=== PATIENT | female | born 1995 | race Caucasian/White ===

== ENCOUNTER → 2017-11-29 | Outpatient (CLI) | payer BC ==
[2017-11-29 17:31] LABS: Basophils # (A) 0.1 k/uL (0-0.2); Basophils % (A) 1 %; Eosinophils # (A) 0.2 k/uL (0-0.7); Eosinophils % (A) 3 %; HCT 44.6 % (34.0-46.0); HGB 14.1 gm/dL (11.4-16.0); Lymphocytes % (A) 37 %; MCHC 31.7 g/dL (31.0-37.0); MCV 85.1 fL (80.0-100.0); Monocytes # (A) 0.5 k/uL (0-1.0); Monocytes % (A) 7 %; Neutrophils # (A) 3.9 k/uL (1.3-7.7); Neutrophils % (A) 49 %; Platelet Count 415 k/uL (150-450); RBC 5.24 m/uL (3.80-5.40); RDW 15.4 % (11.5-15.5)
[2017-11-29 17:57] LABS: ALT 32 U/L (9-52); AST 30 U/L (14-36); Albumin 4.6 g/dL (3.5-5.0); Alkaline Phosphatase 63 U/L (38-126); Anion Gap 13 mmol/L; Blood Urea Nitrogen 12 mg/dL (7-17); Calcium 9.9 mg/dL (8.4-10.2); Carbon Dioxide 25 mmol/L (22-30); Chloride 100 mmol/L (98-107); Glucose 93 mg/dL (74-99); Potassium 4.2 mmol/L (3.5-5.1); Sodium 138 mmol/L (137-145); Total Bilirubin 0.3 mg/dL (0.2-1.3); Total Protein 7.8 g/dL (6.3-8.2)
[2017-11-29 18:03] LABS: T4, Free (Free Thyroxine) 1.01 ng/dL (0.78-2.19)
[2017-11-30 00:36] LABS: Iron Saturation 5.12 (12.00-45.00)
== END | disposition home or self-care (01) ==
LOC: LABWHC1 16:57
PROVIDERS: ATTEND Family Medicine
DX: G43.909 Migraine, unspecified, not intractable, without status migrainosus (principal); L65.0 Telogen effluvium; R41.840 Attention and concentration deficit
CPT/HCPCS: 36415; 80053; 82607; 82626; 83540; 83550; 84403; 84439; 84443; 85025

== ENCOUNTER → 2018-09-07 | Outpatient (CLI) | payer BC ==
[2018-09-07 17:29] LABS: Basophils # (A) 0.1 k/uL (0-0.2); Basophils % (A) 1 %; Eosinophils # (A) 0.2 k/uL (0-0.7); Eosinophils % (A) 3 %; HCT 44.4 % (34.0-46.0); HGB 14.7 gm/dL (11.4-16.0); Lymphocytes # (A) 2.7 k/uL (1.0-4.8); Lymphocytes % (A) 38 %; MCH 30.2 pg (25.0-35.0); MCV 91.6 fL (80.0-100.0); Mean Platelet Volume 7.9; Monocytes # (A) 0.6 k/uL (0-1.0); Monocytes % (A) 8 %; Neutrophils # (A) 3.3 k/uL (1.3-7.7); Neutrophils % (A) 46 %; Platelet Count 375 k/uL (150-450); RBC 4.85 m/uL (3.80-5.40); WBC 7.1 k/uL (3.8-10.6)
[2018-09-07 23:08] LABS: Gliadin AB IgA, Unit <0.2 U/mL
[2018-09-07 23:54] LABS: Codfish IgE <0.10 kU/L; Egg White IgE <0.10 kU/L
[2018-09-07 23:58] LABS: Iron Saturation 16.56 (12.00-45.00); Protein, Total 7.2 g/dL (6.2-8.2)
[2018-09-08 00:05] LABS: Scallop IgE <0.10 kU/L
[2018-09-08 00:06] LABS: Clam IgE <0.10 kU/L; Peanut IgE <0.10 kU/L; Shrimp IgE <0.10 kU/L; Soybean IgE <0.10 kU/L; Walnut IgE (Food) <0.10 kU/L
[2018-09-08 00:33] LABS: ALT 20 U/L (8-44); AST 29 U/L (13-35); Albumin/Globulin Ratio 1.78 (1.60-3.17); Alkaline Phosphatase 67 U/L (41-126); Amylase 128 U/L (23-121); C Reactive Protein <0.4 mg/dL (0.0-0.8); Carbon Dioxide 23.1 mmol/L (21.6-31.8); Chloride 104 mmol/L (96-109); Globulin 2.7 g/dL (1.6-3.3); Glucose 91 mg/dL (70-110); Lipase 50 U/L (14-63); Potassium 3.9 mmol/L (3.5-5.5); Sodium 138 mmol/L (135-145); Total Bilirubin 0.5 mg/dL (0.3-1.2); Total Protein 7.5 g/dL (6.2-8.2)
[2018-09-08 11:07] LABS: Albumin 4.17 g/dL (3.80-4.90); Gamma Globulin 1.16 g/dL (0.70-1.50)
== END | disposition home or self-care (01) ==
LOC: LABWHC1 16:58
PROVIDERS: ATTEND Family Medicine
DX: K58.0 Irritable bowel syndrome with diarrhea (principal); R10.84 Generalized abdominal pain
CPT/HCPCS: 36415; 80053; 82150; 82607; 82785; 83516; 83540; 83550; 83690; 84165; 84439; 84443; 85025; 86003; 86140

== ENCOUNTER → 2022-01-29 | Outpatient (CLI) | payer BC ==
--- NOTE | 2022-01-29 08:12 | US ---
EXAMINATION TYPE: US thyroid st tissue head/neck DATE OF EXAM: 01/29/2022 COMPARISON: Thyroid ultrasound 2013 CLINICAL HISTORY: E07.9 DISORDER OF THYROID. GLAND SIZE: Right Lobe: 5.4. x 1.3 x 1.2 cm Overall Parenchyma: heterogenous Left Lobe: 5.1 x 1.7 x 1.6 cm Overall Parenchyma: heterogeneous Isthmus Thickness: 0.2 cm NODULES RIGHT: # of nodules measured on right: 0 LEFT: # of nodules measured on left: 0 ISTHMUS: # of nodules measured in the isthmus: 0 Bilateral neck scanned, no evidence of lymphadenopathy. Slightly heterogeneous normal-sized thyroid without significant greater than 5 mm solid nodule. IMPRESSION: As above. No significant change from prior
== END | disposition home or self-care (01) ==
LOC: RADUSWWP 07:22
PROVIDERS: ATTEND Family Medicine
DX: E07.9 Disorder of thyroid, unspecified (principal)
CPT/HCPCS: 76536

== ENCOUNTER → 2022-02-19 | Outpatient (CLI) | payer BC ==
[2022-02-19 18:52] LABS: Basophils % (A) 1.5 %; Eosinophils # (A) 0.13 X 10*3/uL (0.04-0.35); Eosinophils % (A) 1.9 %; HCT 47.1 % (37.2-46.3); HGB 15.2 g/dL (12.0-15.0); Immature Grans, Automated 0.1 %; Lymphocytes # (A) 2.28 X 10*3/uL (0.90-5.00); Lymphocytes % (A) 33.4 %; MCHC 32.3 g/dL (32.0-37.0); MCV 89.7 fL (80.0-97.0); Mean Platelet Volume 11.4 fL (9.5-12.2); Monocytes # (A) 0.68 X 10*3/uL (0.20-1.00); NRBC Per 100 WBC 0 /100 WBCS (0.0-0.0); Neutrophils # (A) 3.62 X 10*3/uL (1.80-7.70); Neutrophils % (A) 53.1 %; Platelet Count 372 X 10*3/uL (140-440); RBC 5.25 X 10*6/uL (4.10-5.20); RDW 12.6 % (11.5-14.5); WBC 6.82 X 10*3/uL (4.50-10.00)
[2022-02-19 19:32] LABS: % Iron Saturation 37.58 (12.00-45.00); ALT 20 U/L (8-44); AST 24 U/L (13-35); African American GFR (CKD) 126.2 (60.0-200.0); Albumin 4.9 g/dL (3.8-4.9); Albumin/Globulin Ratio 1.58 (1.60-3.17); Alkaline Phosphatase 98 U/L (41-126); BUN/Creat Ratio 14.45 Ratio (12.00-20.00); Calcium 12.5 mg/dL (8.7-10.3); Carbon Dioxide 23.1 mmol/L (20.0-27.5); Chloride 101 mmol/L (96-109); Chol/HDL Ratio 3.58 Ratio; Globulin 3.1 g/dL (1.6-3.3); Glucose 85 mg/dL (70-110); Iron 201 ug/dL (50-170); LDL Cholesterol,Calculated 135.8 mg/dL (0.0-131.0); Non-African American GFR(CKD) 108.9 (60.0-200.0); Potassium 4.2 mmol/L (3.5-5.5); Sodium 136 mmol/L (135-145); Total Iron Binding Capacity 535 ug/dL (228-460)
[2022-02-20 04:46] LABS: EBV - EA (IgG) <5.0 U/mL (<9.0); EBV - EBNA (IgG) 5.6 U/mL (<18.0); EBV - VCA (IgG) 40.2 U/mL (<18.0); EBV - VCA IgM <10.0 U/mL (<36.0)
== END | disposition home or self-care (01) ==
LOC: LABWHC1 10:52
PROVIDERS: ATTEND Dermatology
DX: Z00.00 Encounter for general adult medical examination without abnormal findings (principal); E61.1 Iron deficiency; E07.9 Disorder of thyroid, unspecified; E53.9 Vitamin B deficiency, unspecified; L65.0 Telogen effluvium; R53.82 Chronic fatigue, unspecified; E55.9 Vitamin D deficiency, unspecified; D22.5 Melanocytic nevi of trunk
CPT/HCPCS: 36415; 80053; 80061; 82306; 82533; 82607; 83540; 83550; 84439; 84443; 85025; 86376; 86663; 86664; 86665